=== PATIENT | female | born 1970 | race Hispanic/Latino ===

== ENCOUNTER 2017-10-24 15:00 | Outpatient (RCR) | payer OTHER | END 2017-11-09 | LOC: OT 15:00 | PROVIDERS: ATTEND Surgery Surgery of the Hand | DX: M18.0 Bilateral primary osteoarthritis of first carpometacarpal joints (principal); M25.542 Pain in joints of left hand; M25.541 Pain in joints of right hand; M25.642 Stiffness of left hand, not elsewhere classified; M25.641 Stiffness of right hand, not elsewhere classified; R53.1 Weakness; R20.9 Unspecified disturbances of skin sensation ==

== ENCOUNTER 2017-11-21 08:00 | Outpatient (RCR) | payer OTHER | END 2017-12-10 | LOC: OT 08:00 | PROVIDERS: ATTEND Surgery Surgery of the Hand | DX: M18.0 Bilateral primary osteoarthritis of first carpometacarpal joints (principal) ==

== ENCOUNTER 2019-04-14 11:01 | Emergency (ER) | payer OTHER ==
[~2019-04-14] VITALS: Ht 172.7 cm; Wt 74.8 kg
[2019-04-14] MEDS ORDERED: ONDANSETRON HCL 4 MG ORAL DISINTEGRATING TAB PO ONE (11:15)
[2019-04-14] MEDS ORDERED: DICYCLOMINE HCL 20 MG/2 ML VIAL IM ONE (11:15)
[2019-04-14 11:50] LABS: CLARITY,URINE CLEAR (CLEAR); COLOR,URINE YELLOW (YELLOW)
[2019-04-14 11:51] LABS: LEUKOCYTE ESTERASE ,URINE NEGATIVE (NEGATIVE); NITRITE,URINE NEGATIVE (NEGATIVE)
[2019-04-14 11:52] LABS: PROTEIN,URINE DIPSTICK TRACE (NEGATIVE)
[2019-04-14 11:53] LABS: KETONES,URINE NEGATIVE (NEGATIVE)
[2019-04-14 11:54] LABS: BILIRUBIN,URINE NEGATIVE (NEGATIVE); URINE UROBILINOGEN 0.2 mg/dL (0.2 - 1)
[2019-04-14 11:55] LABS: BASOPHILS % 0.2 % (0.0-1.0); EOSINOPHILS # (AUTO) 0.1 (0.0-0.4); EOSINOPHILS % 1.5 % (0.0-6.0); HEMATOCRIT 37.5 % (34.2-44.1); LYMPHOCYTES # (AUTO) 1.1 (1.0-3.2); LYMPHOCYTES % 16.6 % (18.0-39.1); MEAN CORPUSCULAR VOLUME 84.3 fL (81-99); MONOCYTES # (AUTO) 0.6 (0.2-0.8); MONOCYTES % 9.3 % (4.4-11.3); NEUTROPHILS # (AUTO) 4.8 (2.1-6.9); NEUTROPHILS % 72.1 % (38.7-80.0); PLATELET COUNT 177 x10e3/uL (140-360); RED BLOOD COUNT 4.45 x10e6/uL (3.6-5.1); RED CELL DISTRIBUTION WIDTH 13.8 % (11.7-14.4)
[2019-04-14 11:55] LABS: BACTERIA,URINE RARE /HPF; EPITHELIAL CELLS,URINE FEW /LPF; RBC,URINE 0-5 /HPF (0-5); WBC,URINE (MAN) 0-5 /HPF (0-5)
[2019-04-14 12:16] LABS: ALANINE AMINOTRANSFERASE 17 IU/L (0-55); ALBUMIN 3.5 g/dL (3.5-5.0); ALBUMIN/GLOBULIN RATIO 1.1 (0.8-2.0); ALKALINE PHOSPHATASE 66 IU/L (40-150); AMYLASE 89 U/L (25-125); ANION GAP 10.7 mmol/L (8-16); BLOOD UREA NITROGEN 10 mg/dL (7-26); BUN/CREATININE RATIO 14 (6-25); CARBON DIOXIDE 24 mmol/L (22-29); CHLORIDE 104 mmol/L (98-107); CREATININE, SERUM 0.72 mg/dL (0.57-1.11); EST GLOMERULAR FILTRATION RATE > 60 ML/MIN (60-); GLUCOSE 96 mg/dL (74-118); LIPASE 10 U/L (8-78); POTASSIUM 3.7 mmol/L (3.5-5.1); SODIUM 135 mmol/L (136-145)
[2019-04-14 12:54] LABS: PREGNANCY TEST, URINE NEGATIVE (NEGATIVE)
--- NOTE | 2019-04-14 14:04 | Diagnostic Imaging Report ---
EXAM: ABDOMEN-1VIEW (KUB) DATE: 04/14/2019 11:12 AM INDICATION: Abdominal pain COMPARISON: None FINDINGS: Bowel gas pattern appears nonspecific but nonobstructive. Bowel gas partially obscures renal shadows. Suspected phlebolith noted within the pelvis. No other abnormal intra-abdominal calcification is appreciated. No intraperitoneal free air is appreciated on this single view examination. No acute osseous abnormalities identified. IMPRESSION: No acute radiographic abnormality identified within the abdomen. Signed by: Dr. Junior Alvarez MD on 04/14/2019 2:01 PM
[2019-04-14 15:38] VITALS: BP 110/66
== END 2019-04-14 15:41 | disposition home or self-care (01) ==
LOC: ER 11:01
DX: R10.84 Generalized abdominal pain (principal); R11.0 Nausea
CPT/HCPCS: 36415; 74018; 80053; 81001; 81025; 82150; 83690; 85025; 87086; 99284; J0500; Q0162

== ENCOUNTER 2022-09-03 20:01 | Emergency (ER) | payer OTHER ==
[~2022-09-03] VITALS: Ht 172.7 cm; Wt 74.8 kg
== END 2022-09-03 20:25 | disposition home or self-care (01) ==
LOC: ER 20:12
DX: R20.2 Paresthesia of skin (principal); S44.8X2A Injury of other nerves at shoulder and upper arm level, left arm, initial encounter; F17.210 Nicotine dependence, cigarettes, uncomplicated
CPT/HCPCS: 99282

== ENCOUNTER 2024-12-26 19:21 | Emergency (ER) | payer OTHER ==
[~2024-12-26] VITALS: Ht 172.7 cm; Wt 75.3 kg
[~2024-12-26 19:21] MED LIST: AZITHROMYCIN250 MG PO; THERAFLU NIGHT1 EAC5 PO
[2024-12-26 19:24] VITALS: PULSE 83; RESP 20; TEMP 98.7
[2024-12-26] MEDS: DEXAMETHASONE SOD PHOS INJ 4 MG/ML SDV IM ONE (20:28)
[2024-12-26] MEDS: KETOROLAC TROMETHAMINE 30 MG/ML VIAL IM ONE (20:28)
[2024-12-26] MEDS: ACETAMINOPHEN 325 MG TAB PO ONE (20:29)
[2024-12-26] MEDS ORDERED: TYLENOL325 MG PO (20:31)
[2024-12-26] MEDS ORDERED: KETOROLAC TROME10 MG PO (20:31)
[2024-12-26] MEDS ORDERED: PREDNISONE20 MG PO (20:31)
[2024-12-26 20:38] VITALS: BP 131/74; PULSE 60; RESP 16; TEMP 98; O2SAT 97
== END 2024-12-26 20:44 | disposition home or self-care (01) ==
LOC: FSED 19:27
DX: M54.42 Lumbago with sciatica, left side (principal); F17.210 Nicotine dependence, cigarettes, uncomplicated
CPT/HCPCS: 72192; 96372; 99284; J1100; J1885